=== PATIENT | female | born 1995 | race Caucasian/White ===

== ENCOUNTER 2017-01-22 09:45 | Emergency (ER) | payer OTHER, MEDICAID ==
[2017-01-22] MEDS ORDERED: ONDANSETRON 4MG/2ML VIAL (J2405) As Ordered ONE (10:09)
[2017-01-22] MEDS ORDERED: KETOROLAC 30 MG/ML VIAL (J1885) As Ordered ONE (10:09)
[2017-01-22 10:35] LABS: BASO % 0.6 % (0.0-1.0); EOS # 0.2 K/mm3 (0.0-0.50); EOS % 3.7 % (0.0-3.0); LARGE UNSTAINED CELL # 0.2 K/mm3 (0.0-0.4); LARGE UNSTAINED CELL % 2.7 % (0.0-4.0); LYMPH # 0.8 K/mm3 (1.5-6.5); LYMPH % 14.1 % (24.0-44.0); MEAN CORPUSCULAR HEMOGLOBIN 30.1 pg (27.0-33.0); MEAN CORPUSCULAR HGB CONC 33.2 g/dl (32.0-36.5); MEAN CORPUSCULAR VOLUME 90.7 fl (80.0-96.0); MONO # 0.3 K/mm3 (0.0-0.8); MONO % 5.8 % (0.0-5.0); NEUTROPHILS # 4.2 K/mm3 (1.8-7.7); NEUTROPHILS % 73.1 % (36.0-66.0); PLATELET COUNT, AUTOMATED 188 k/mm3 (150-450); RED CELL DISTRIBUTION WIDTH 12.4 % (11.5-14.5); WHITE BLOOD COUNT 5.8 K/mm3 (4.0-10.0)
[2017-01-22 10:53] LABS: ANION GAP 8 MEQ/L (8-16); BLOOD UREA NITROGEN 15 MG/DL (7-18); CALCIUM LEVEL 8.2 MG/DL (8.5-10.1); CARBON DIOXIDE LEVEL 27 MEQ/L (21-32); CHLORIDE LEVEL 109 MEQ/L (98-107); CREATININE FOR GFR 0.87 MG/DL (0.55-1.02); GLUCOSE, FASTING 106 MG/DL (70-105); SODIUM LEVEL 144 MEQ/L (136-145)
[2017-01-22] MEDS ORDERED: MORPHINE 4 MG/ML 1ML SYRINGE As Ordered ONE (11:23)
--- NOTE | 2017-01-22 11:56 | EDDOCDS ---
Physician Documentation [facility] Name: Deborah Cyr Age: 21 yrs Sex: Female : 1995 Arrival Date: 01/22/2017 Time: 09:45 Bed I2 / M2 Private MD: Disposition: 01/22/17 11:41 Discharged to Home/Self Care. Impression: Calculus of kidney and ureter - LEFT, WITH MILD OBSTRUCTIVE UROPATHY, Other abdominal pain - LEFT FLANK PAIN, Nausea with vomiting, unspecified. - Condition is Stable. - Discharge Instructions: Kidney Stones, Nausea and Vomiting. - Prescriptions for Naprosyn 500 mg Oral Tablet - take 1 tablet by ORAL route every 12 hours As needed take with food; 30 tablet. Flomax 0.4 mg Oral Capsule, Sust. Release 24 hr - take 1 capsule by ORAL route once daily for 10 days 1/2 hour following the same meal each day; 10 capsule. ZOFRAN ODT 4 mg Oral - dissolve 1 tablet by ORAL route 3-4 times daily As needed do not chew, do not swallow whole; 20 tablet. [place] 5- 325 mg Oral Tablet - take 1 tablet by ORAL route every 6 hours As needed MDD: 4 tabs; TAKE WITH FOOD.; 12 tablet. - Medication Reconciliation, Local Pharmacy Hours, Work Release Form - 2 day form. - Follow up: Emergency Department; When: As needed; Reason: Worsening of conditions. Follow up: Maria T Chavez MD; When: Call to arrange an appointment; Reason: Wound/Symptom Recheck, Further diagnostic work-up, Recheck today's complaints, Continuance of care, To establish care. - Problem is new. - Symptoms have improved. Historical: - Allergies: Codeine Sulfate (Vomit); tramadol (Upset stomach); - Home Meds: 1. Tylenol 500 mg X2 Oral (Last dose: 01/22/2017 07:30) - PMHx: Anemia; Hypoglycemia; meniscus damage to right knee; torn ACL in left knee; Kidney stones; - PSHx: none; - Social history: Smoking status: Patient uses tobacco products, light tobacco smoker. No barriers to communication noted, The patient speaks fluent Scottish. - Family history: No immediate family members are acutely ill. - : The pt / caregiver states he / she is not on anticoagulants. Home medication list is obtained from the patient, [facility] import data. - Exposure Risk Screening:: None identified. CHANNEL MAN: 01/22 09:55 LMP 01/16/2017 kcs Vital Signs: 09:47 BP 146 / 95; Pulse 69; Resp 20; Temp 96.0(T); Pulse Ox 100% ; Weight 63.5 kg / 139.99 lr2 lbs; Height 5 ft. 6 in. (167.64 cm); Pain 10/10; 11:50 BP 115 / 74; Pulse 75; Resp 20; Temp 96.6(O); Pulse Ox 98% on R/A; Pain 7/10; jml1 09:47 Body Mass Index 22.60 (63.50 kg, 167.64 cm) lr2 MDM: 10:06 UCG by Nursing ordered. dt4 10:06 IV Saline Lock ordered. dt4 10:06 NS 0.9% 500 ml IV at bolus once ordered. dt4 10:06 Ondansetron 4 mg IVP once ordered. dt4 10:06 ketorolac 30 mg IVP once ordered. dt4 10:07 Urinalysis Ordered. EDMS 10:07 CBC with Diff Ordered. EDMS 10:07 Basic Metabolic Profile Ordered. EDMS 10:07 CRP Ordered. EDMS 10:07 Urine Culture Ordered. EDMS 10:07 CT ABD & PELVIS: No Contrast Ordered. EDMS 10:37 Financial registration complete. mm15 10:45 [facility] Payment Agreement was scanned into [facility] and attached to record. mm15 11:28 morphine 4 mg IVP once ordered. dt4 Point of Care Testing: Urine : 10:20 hCG Reading: Negative; jml1 Ranges: Administered Medications: 10:24 Drug: NS 0.9% 500 ml [sodium chloride 0.9 % intravenous solution] Route: IV; Rate: hs1 bolus; Site: right antecubital; 11:55 Follow up: IV Status: Completed infusion; IV Intake: 500ml hs1 10:24 Drug: Ondansetron 4 mg [ondansetron HCl 2 mg/mL intravenous solution (2 mL)] Route: hs1 IVP; Site: right antecubital; 10:24 Drug: ketorolac 30 mg [ketorolac 30 mg/mL (1 mL) injection solution (1 mL)] Route: IVP; hs1 Site: right antecubital; 11:28 Drug: morphine 4 mg [morphine 4 mg/mL intravenous cartridge (1 mL)] Route: IVP; Site: hs1 right antecubital; 11:53 Follow up: Response: Confirmed pt not driving.; Pain is decreased hs1 Signatures: Dispatcher [employer] Noemi Hendricks RN RN kcs Minal Lomas RN RN hs1 Antoni Diaz mm15 Faustina Torres PA-C PA-C dt4 The chart was reviewed and I authenticate all verbal orders and agree with the evaluation and treatment provided.Attachments: 10:45 [facility] Payment Agreement mm15 MTDD
--- NOTE | 2017-01-22 11:56 | EDDOCDS ---
[facility] Name: Deborah Cyr Age: 21 yrs Sex: Female : 1995 Arrival Date: 01/22/2017 Time: 09:45 Bed I2 / M2 Private MD: Diagnosis: Calculus of kidney and ureter-LEFT, WITH MILD OBSTRUCTIVE UROPATHY;Other abdominal pain-LEFT FLANK PAIN;Nausea with vomiting, unspecified Presentation: 01/22 09:53 Presenting complaint: Patient states: since 0730 this am she has had left flank pain. kcs Mechanism of Injury: No Mechanism of Injury. Adult Sepsis Screening: The patient does not have new or worsening altered mentation. Patient's respiratory rate is less than 22. Systolic blood pressure is greater than 100. Patient has a qSOFA score of 0- Negative Sepsis Screen. Suicide/Homicide risk assessment- the patient denies having any suicidal and/or homicidal ideations and does not present with any other emotional, behavioral or mental health complaints. Status: The patient is a dependent. Transition of care: patient was not received from another setting of care. 09:53 Acuity: LINDA Level 3 kcs 09:53 Method Of Arrival: Ambulance kcs 11:54 Acute neurological deficits are not present. hs1 Triage Assessment: 09:55 General: Appears uncomfortable, well developed, well nourished, Behavior is agitated, kcs anxious, restless. Pain: Location: left flank Pain currently is 10 out of 10 on a pain scale. HIV screening NA for this visit Offered previously. Neurological: Level of Consciousness is awake, alert. Respiratory: Airway is patent Respiratory effort is even, unlabored, Respiratory pattern is regular, symmetrical. : Denies burning with urination, inability to void, hematuria. Derm: Skin is intact, is healthy with good turgor, Skin is dry, Skin is normal. 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 Tylenol 500 mg X2 Oral (Last dose: 01/22/2017 07:30) - PMHx: Anemia; Hypoglycemia; meniscus damage to right knee; torn ACL in left knee; Kidney stones; - PSHx: none; - Social history: Smoking status: Patient uses tobacco products, light tobacco smoker. No barriers to communication noted, The patient speaks fluent Gambian. - Family history: No immediate family members are acutely ill. - : The pt / caregiver states he / she is not on anticoagulants. Home medication list is obtained from the patient, [employer] import data. - Exposure Risk Screening:: None identified. Screenin:24 Screening information is obtained from the patient. Fall risk: No risks identified. hs1 Assistance ADL's: requires no assistance with activities of daily living. Abuse/DV Screen: The patient / caregiver reports he/she is: not in a situation that causes fear, pain or injury. Nutritional screening: No deficits noted. Advance Directives: There is no active DNR order. home support is adequate. Assessment: 10:24 General: Appears uncomfortable, Behavior is fussy. Pain: Location: back and abdomen. hs1 Neurological: No deficits noted. Respiratory: No deficits noted. Airway is patent Respiratory effort is even, unlabored, Respiratory pattern is regular, symmetrical. : Reports urgency urinary frequency. Musculoskeletal: Circulation, motion, and sensation intact Range of motion intact in all extremities. 11:00 General: Appears in no apparent distress, Patient at this time having CT study. hs1 11:12 General: returned from CT states in increased pain in left lower quadrant. Patient hs1 states pain 9/10 and radiates to back. . 11:53 General: Appears in no apparent distress, Behavior is cooperative. Pain: Location: hs1 abdomen and back Pain currently is 7 out of 10 on a pain scale. Respiratory: No deficits noted. GI: Denies nausea. Vital Signs: 09:47 BP 146 / 95; Pulse 69; Resp 20; Temp 96.0(T); Pulse Ox 100% ; Weight 63.5 kg; Height 5 lr2 ft. 6 in. (167.64 cm); Pain 10/10; 11:50 BP 115 / 74; Pulse 75; Resp 20; Temp 96.6(O); Pulse Ox 98% on R/A; Pain 7/10; jml1 09:47 Body Mass Index 22.60 (63.50 kg, 167.64 cm) lr2 Vitals: 09:47 Log In Time: January 22, 2017 at 09:45. lr2 ED Course: 09:46 Patient visited by Elayne Jackson. lr2 09:46 Patient moved to Waiting lr2 09:46 Patient moved to Pre RCE lr2 09:54 Triage Initiated kcs 09:57 [facility]ust[facility] Torres [facility] dt4 09:57 Giselle Pena MD is Attending Physician. dt4 09:57 Patient moved to Triage 3 kcs 09:58 Patient visited by Faustina Torres PA-C. dt4 10:06 Minal Lomas, RN is Primary Nurse. srm 10:06 Patient moved to I2 / M2 srm 10:20 Inserted saline lock: 20 gauge in right antecubital area and blood collected. The hs1 patient tolerated the procedure well. 10:21 Patient visited by Clifford Long. jml1 10:24 CRP Sent. hs1 10:24 Basic Metabolic Profile Sent. hs1 10:24 CBC with Diff Sent. hs1 10:24 Urine Culture Sent. hs1 10:24 Urinalysis Sent. hs1 10:45 [facility] Payment Agreement was scanned into [employer] and attached to record. mm15 10:52 Patient visited by Lianne Forrester RN. mk4 11:27 Patient visited by Minal Lomas, BILLY. hs1 11:40 Maria T Chavez MD is Referral Physician. dt4 11:51 Patient visited by Clifford Long. jml1 11:55 The patient / caregiver is instructed regarding the plan of care and ED course. hs1 11:55 Discontinued IV lock intact, bleeding controlled, pressure dressing applied, No hs1 redness/swelling at site. No procedures done that require assistance. Administered Medications: 10:24 Drug: NS 0.9% 500 ml [sodium chloride 0.9 % intravenous solution] Route: IV; Rate: hs1 bolus; Site: right antecubital; 11:55 Follow up: IV Status: Completed infusion; IV Intake: 500ml hs1 10:24 Drug: Ondansetron 4 mg [ondansetron HCl 2 mg/mL intravenous solution (2 mL)] Route: hs1 IVP; Site: right antecubital; 10:24 Drug: ketorolac 30 mg [ketorolac 30 mg/mL (1 mL) injection solution (1 mL)] Route: IVP; hs1 Site: right antecubital; 11:28 Drug: morphine 4 mg [morphine 4 mg/mL intravenous cartridge (1 mL)] Route: IVP; Site: hs1 right antecubital; 11:53 Follow up: Response: Confirmed pt not driving.; Pain is decreased hs1 Point of Care Testing: Urine : 10:20 hCG Reading: Negative; jml1 Ranges: Intake: 11:55 IV: 500.00ml; Total: 500.00ml. hs1 Order Results: Lab Order: Urinalysis; SPEC'M 01/22/17 10:14 Test: APPEARANCE, URINE; Value: HAZY; Range: CLEAR; Status: F Test: COLOR, URINE; Value: YELLOW; Range: YELLOW; Status: F Test: PH,URINE; Value: 5.0; Range: 5.0-9.0; Units: UNITS; Status: F Test: SPECIFIC GRAVITY URINE AUTO; Value: 1.025; Range: 1.002-1.035; Status: F Test: PROTEIN, URINE AUTO; Value: 1+; Range: NEGATIVE; Abnormal: Above high normal; Units: mg/dL; Status: F Test: GLUCOSE, URINE (UA) AUTO; Value: NEGATIVE; Range: NEGATIVE; Units: mg/dL; Status: F Test: KETONE, URINE AUTO; Value: TRACE; Range: NEGATIVE; Abnormal: Above high normal; Units: mg/dL; Status: F Test: UROBILINOGEN, URINE AUTO; Value: 0.2; Range: 0.0-2.0; Units: mg/dL; Status: F Test: BILIRUBIN, URINE AUTO; Value: NEGATIVE; Range: NEGATIVE; Status: F Test: NITRITE, URINE AUTO; Value: NEGATIVE; Range: NEGATIVE; Status: F Test: LEUKOCYTE ESTERASE, URINE AUTO; Value: NEGATIVE; Range: NEGATIVE; Status: F Test: BLOOD, URINE BLOOD; Value: 3+; Range: NEGATIVE; Abnormal: Above high normal; Status: F Test: WBC, URINE AUTO; Value: 1; Range: 0-3; Units: /HPF; Status: F Test: RBC, URINE AUTO; Value: TNTC; Range: 0-3; Abnormal: Above high normal; Units: /HPF; Status: F Test: BACTERIA, URINE AUTO; Value: NEGATIVE; Range: NEGATIVE; Status: F Test: SQUAMOUS EPITHELIAL CELL UR AU; Value: 1; Range: 0-6; Units: /HPF; Status: F Test: MUCUS, URINE; Value: SMALL; Range: NEGATIVE; Status: F Test: HYALINE CAST, URINE AUTO; Value: 0; Range: 0-1; Units: /LPF; Status: F Lab Order: CBC with Diff; SPEC'M 01/22/17 10:14 Test: WHITE BLOOD COUNT; Value: 5.8; Range: 4.0-10.0; Units: K/mm3; Status: F Test: RED BLOOD COUNT; Value: 4.33; Range: 4.00-5.40; Units: M/mm3; Status: F Test: HEMOGLOBIN; Value: 13.0; Range: 12.0-16.0; Units: g/dl; Status: F Test: HEMATOCRIT; Value: 39.3; Range: 36.0-47.0; Units: %; Status: F Test: MEAN CORPUSCULAR VOLUME; Value: 90.7; Range: 80.0-96.0; Units: fl; Status: F Test: MEAN CORPUSCULAR HEMOGLOBIN; Value: 30.1; Range: 27.0-33.0; Units: pg; Status: F Test: MEAN CORPUSCULAR HGB CONC; Value: 33.2; Range: 32.0-36.5; Units: g/dl; Status: F Test: RED CELL DISTRIBUTION WIDTH; Value: 12.4; Range: 11.5-14.5; Units: %; Status: F Test: PLATELET COUNT, AUTOMATED; Value: 188; Range: 150-450; Units: k/mm3; Status: F Test: NEUTROPHILS %; Value: 73.1; Range: 36.0-66.0; Abnormal: Above high normal; Units: %; Status: F Test: LYMPH %; Value: 14.1; Range: 24.0-44.0; Abnormal: Below low normal; Units: %; Status: F Test: MONO %; Value: 5.8; Range: 0.0-5.0; Abnormal: Above high normal; Units: %; Status: F Test: EOS %; Value: 3.7; Range: 0.0-3.0; Abnormal: Above high normal; Units: %; Status: F Test: BASO %; Value: 0.6; Range: 0.0-1.0; Units: %; Status: F Test: LARGE UNSTAINED CELL %; Value: 2.7; Range: 0.0-4.0; Units: %; Status: F Test: NEUTROPHILS #; Value: 4.2; Range: 1.8-7.7; Units: K/mm3; Status: F Test: LYMPH #; Value: 0.8; Range: 1.5-6.5; Abnormal: Below low normal; Units: K/mm3; Status: F Test: MONO #; Value: 0.3; Range: 0.0-0.8; Units: K/mm3; Status: F Test: EOS #; Value: 0.2; Range: 0.0-0.50; Units: K/mm3; Status: F Test: BASO #; Value: 0.0; Range: 0.0-0.2; Units: K/mm3; Status: F Test: LARGE UNSTAINED CELL #; Value: 0.2; Range: 0.0-0.4; Units: K/mm3; Status: F Lab Order: Basic Metabolic Profile; SPEC'M 01/22/17 10:14 Test: GLUCOSE, FASTING; Value: 106; Range: 70-105; Abnormal: Above high normal; Units: MG/DL; Status: F Test: BLOOD UREA NITROGEN; Value: 15; Range: 7-18; Units: MG/DL; Status: F Test: CREATININE FOR GFR; Value: 0.87; Range: 0.55-1.02; Units: MG/DL; Status: F Test: SODIUM LEVEL; Value: 144; Range: 136-145; Units: MEQ/L; Status: F Test: POTASSIUM SERUM; Value: 4.0; Range: 3.5-5.1; Units: MEQ/L; Status: F Test: CHLORIDE LEVEL; Value: 109; Range: 98-107; Abnormal: Above high normal; Units: MEQ/L; Status: F Test: CARBON DIOXIDE LEVEL; Value: 27; Range: 21-32; Units: MEQ/L; Status: F Test: ANION GAP; Value: 8; Range: 8-16; Units: MEQ/L; Status: F Test: CALCIUM LEVEL; Value: 8.2; Range: 8.5-10.1; Abnormal: Below low normal; Units: MG/DL; Status: F Lab Order: CRP; SPEC'M 01/22/17 10:14 Test: C REACTIVE PROTEIN QUANTITATIV; Value: < 0.30; Range: 0.00-0.30; Units: MG/DL; Status: F Outcome: 11:41 Discharge ordered by Provider. dt4 11:54 Discharge Assessment: Patient awake, alert and oriented x 3. No cognitive and/or hs1 functional deficits noted. Patient verbalized understanding of disposition instructions. patient administered narcotics - yes. Pt provided with safe discharge. The following High Risk Discharge criteria are identified: None. Discharged to home ambulatory, with friend. Condition: stable. Discharge instructions given to patient, Instructed on discharge instructions, follow up and referral plans. medication usage, Demonstrated understanding of instructions, medications, Pt was receptive of discharge instructions/ teaching. Prescriptions given X 4, Work note provided to patient. CT Study completed. Property sent home with patient. 11:55 Patient left the ED. hs1 Signatures: Noemi Dyer, RN RN [facility] Rosanne Self RN RN [facility] Minal Lomas RN RN hs1 Clifford Long jml1 Antoni Diaz mm15 Lianne Forrester RN RN mk4 Faustina Torres, SERENE PARobi dt4 Elayne Jackson lr2 ILANA
--- NOTE | 2017-01-22 14:28 | REP ---
Clinical: Left flank pain. Comparison: 07/01/2016. Findings: Mild left-sided obstructive uropathy with mild hydroureteronephrosis and minimal periureteral stranding secondary to a 2 mm calculus at the ureterovesicle junction (image 122). 3 mm nonobstructing left renal calculus is also appreciated while the right kidney and ureter appear normal. The bladder is unremarkable. Liver, spleen, pancreas, gallbladder, and bilateral adrenal glands are normal. The enteric system is without obstruction or acute inflammatory process. Pelvis demonstrates normal bladder and age-appropriate uterus/adnexa. Trace pelvic fluid likely physiologic. No free air. No obvious adenopathy. Abdominal aorta without aneurysm. Surrounding musculoskeletal structures intact. Lung bases clear. Impression: Mild left-sided obstructive uropathy with a 2 mm calculus at the ureterovesicle junction. 3 mm nonobstructing left renal calculus. Normal right kidney/ureter and bladder. Signed by Tima Lindquist MD 01/22/2017 11:18 A
--- NOTE | 2017-01-24 12:56 | EDDOCDS ---
Nurse's Notes [facility] Name: Deborah Cyr Age: 21 yrs Sex: Female : 1995 Arrival Date: 01/22/2017 Time: 09:45 Bed I2 / M2 Private MD: Diagnosis: Calculus of kidney and ureter-LEFT, WITH MILD OBSTRUCTIVE UROPATHY;Other abdominal pain-LEFT FLANK PAIN;Nausea with vomiting, unspecified Presentation: 01/22 09:53 Presenting complaint: Patient states: since 0730 this am she has had left flank pain. kcs Mechanism of Injury: No Mechanism of Injury. Adult Sepsis Screening: The patient does not have new or worsening altered mentation. Patient's respiratory rate is less than 22. Systolic blood pressure is greater than 100. Patient has a qSOFA score of 0- Negative Sepsis Screen. Suicide/Homicide risk assessment- the patient denies having any suicidal and/or homicidal ideations and does not present with any other emotional, behavioral or mental health complaints. Status: The patient is a dependent. Transition of care: patient was not received from another setting of care. 09:53 Acuity: LINDA Level 3 kcs 09:53 Method Of Arrival: Ambulance kcs 11:54 Acute neurological deficits are not present. hs1 Triage Assessment: 09:55 General: Appears uncomfortable, well developed, well nourished, Behavior is agitated, kcs anxious, restless. Pain: Location: left flank Pain currently is 10 out of 10 on a pain scale. HIV screening NA for this visit Offered previously. Neurological: Level of Consciousness is awake, alert. Respiratory: Airway is patent Respiratory effort is even, unlabored, Respiratory pattern is regular, symmetrical. : Denies burning with urination, inability to void, hematuria. Derm: Skin is intact, is healthy with good turgor, Skin is dry, Skin is normal. 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 Tylenol 500 mg X2 Oral (Last dose: 01/22/2017 07:30) - PMHx: Anemia; Hypoglycemia; meniscus damage to right knee; torn ACL in left knee; Kidney stones; - PSHx: none; - Social history: Smoking status: Patient uses tobacco products, light tobacco smoker. No barriers to communication noted, The patient speaks fluent [place]. - Family history: No immediate family members are acutely ill. - : The pt / caregiver states he / she is not on anticoagulants. Home medication list is obtained from the patient, [employer] import data. - Exposure Risk Screening:: None identified. Screenin:24 Screening information is obtained from the patient. Fall risk: No risks identified. hs1 Assistance ADL's: requires no assistance with activities of daily living. Abuse/DV Screen: The patient / caregiver reports he/she is: not in a situation that causes fear, pain or injury. Nutritional screening: No deficits noted. Advance Directives: There is no active DNR order. home support is adequate. Assessment: 10:24 General: Appears uncomfortable, Behavior is fussy. Pain: Location: back and abdomen. hs1 Neurological: No deficits noted. Respiratory: No deficits noted. Airway is patent Respiratory effort is even, unlabored, Respiratory pattern is regular, symmetrical. : Reports urgency urinary frequency. Musculoskeletal: Circulation, motion, and sensation intact Range of motion intact in all extremities. 11:00 General: Appears in no apparent distress, Patient at this time having CT study. hs1 11:12 General: returned from CT states in increased pain in left lower quadrant. Patient hs1 states pain 9/10 and radiates to back. . 11:53 General: Appears in no apparent distress, Behavior is cooperative. Pain: Location: hs1 abdomen and back Pain currently is 7 out of 10 on a pain scale. Respiratory: No deficits noted. GI: Denies nausea. Vital Signs: 09:47 BP 146 / 95; Pulse 69; Resp 20; Temp 96.0(T); Pulse Ox 100% ; Weight 63.5 kg; Height 5 lr2 ft. 6 in. (167.64 cm); Pain 10/10; 11:50 BP 115 / 74; Pulse 75; Resp 20; Temp 96.6(O); Pulse Ox 98% on R/A; Pain 7/10; jml1 09:47 Body Mass Index 22.60 (63.50 kg, 167.64 cm) lr2 Vitals: 09:47 Log In Time: January 22, 2017 at 09:45. lr2 ED Course: 09:46 Patient visited by Elayne Jackson. lr2 09:46 Patient moved to Waiting lr2 09:46 Patient moved to Pre RCE lr2 09:54 Triage Initiated kcs 09:57 [facility]ust[facility] Torres [facility]. dt4 09:57 Giselle Pena MD is Attending Physician. dt4 09:57 Patient moved to Triage 3 kcs 09:58 Patient visited by Faustina Torres PA-C. dt4 10:06 Minal Lomas, RN is Primary Nurse. srm 10:06 Patient moved to I2 / M2 srm 10:20 Inserted saline lock: 20 gauge in right antecubital area and blood collected. The hs1 patient tolerated the procedure well. 10:21 Patient visited by Clifford Long. jml1 10:24 CRP Sent. hs1 10:24 Basic Metabolic Profile Sent. hs1 10:24 CBC with Diff Sent. hs1 10:24 Urine Culture Sent. hs1 10:24 Urinalysis Sent. hs1 10:45 [facility] Payment Agreement was scanned into [employer] and attached to record. mm15 10:52 Patient visited by Lianne Forrester RN. mk4 11:27 Patient visited by Minal Lomas, BILLY. hs1 11:40 Maria T Chavez MD is Referral Physician. dt4 11:51 Patient visited by Clifford Long. jml1 11:55 The patient / caregiver is instructed regarding the plan of care and ED course. hs1 11:55 Discontinued IV lock intact, bleeding controlled, pressure dressing applied, No hs1 redness/swelling at site. No procedures done that require assistance. 13:33 T-Sheet-- Draft Copy was scanned into [employer] and attached to record. gb 13:33 Radiology Report was scanned into [employer] and attached to record. gb 14:48 CT ABD & PELVIS: No Contrast Returned. EDMS Administered Medications: 10:24 Drug: NS 0.9% 500 ml [sodium chloride 0.9 % intravenous solution] Route: IV; Rate: hs1 bolus; Site: right antecubital; 11:55 Follow up: IV Status: Completed infusion; IV Intake: 500ml hs1 10:24 Drug: Ondansetron 4 mg [ondansetron HCl 2 mg/mL intravenous solution (2 mL)] Route: hs1 IVP; Site: right antecubital; 10:24 Drug: ketorolac 30 mg [ketorolac 30 mg/mL (1 mL) injection solution (1 mL)] Route: IVP; hs1 Site: right antecubital; 11:28 Drug: morphine 4 mg [morphine 4 mg/mL intravenous cartridge (1 mL)] Route: IVP; Site: hs1 right antecubital; 11:53 Follow up: Response: Confirmed pt not driving.; Pain is decreased hs1 Point of Care Testing: Urine : 10:20 hCG Reading: Negative; jml1 Ranges: Intake: 11:55 IV: 500.00ml; Total: 500.00ml. hs1 Order Results: Lab Order: Urinalysis; SPEC'M 01/22/17 10:14 Test: APPEARANCE, URINE; Value: HAZY; Range: CLEAR; Status: F Test: COLOR, URINE; Value: YELLOW; Range: YELLOW; Status: F Test: PH,URINE; Value: 5.0; Range: 5.0-9.0; Units: UNITS; Status: F Test: SPECIFIC GRAVITY URINE AUTO; Value: 1.025; Range: 1.002-1.035; Status: F Test: PROTEIN, URINE AUTO; Value: 1+; Range: NEGATIVE; Abnormal: Above high normal; Units: mg/dL; Status: F Test: GLUCOSE, URINE (UA) AUTO; Value: NEGATIVE; Range: NEGATIVE; Units: mg/dL; Status: F Test: KETONE, URINE AUTO; Value: TRACE; Range: NEGATIVE; Abnormal: Above high normal; Units: mg/dL; Status: F Test: UROBILINOGEN, URINE AUTO; Value: 0.2; Range: 0.0-2.0; Units: mg/dL; Status: F Test: BILIRUBIN, URINE AUTO; Value: NEGATIVE; Range: NEGATIVE; Status: F Test: NITRITE, URINE AUTO; Value: NEGATIVE; Range: NEGATIVE; Status: F Test: LEUKOCYTE ESTERASE, URINE AUTO; Value: NEGATIVE; Range: NEGATIVE; Status: F Test: BLOOD, URINE BLOOD; Value: 3+; Range: NEGATIVE; Abnormal: Above high normal; Status: F Test: WBC, URINE AUTO; Value: 1; Range: 0-3; Units: /HPF; Status: F Test: RBC, URINE AUTO; Value: TNTC; Range: 0-3; Abnormal: Above high normal; Units: /HPF; Status: F Test: BACTERIA, URINE AUTO; Value: NEGATIVE; Range: NEGATIVE; Status: F Test: SQUAMOUS EPITHELIAL CELL UR AU; Value: 1; Range: 0-6; Units: /HPF; Status: F Test: MUCUS, URINE; Value: SMALL; Range: NEGATIVE; Status: F Test: HYALINE CAST, URINE AUTO; Value: 0; Range: 0-1; Units: /LPF; Status: F Lab Order: Urine Culture; SPEC'M 01/22/17 10:14 Test: URINE CULTURE; Value: <EXTERNAL COMMENT eCWMed> FULL REPORT IN LAB NOTES (eCW and Medent).; Status: F Test: URINE CULTURE; Value: URINE CULTURE RESULT SPECIMEN APPEARS CONTAMINATED; Status: F Lab Order: CBC with Diff; SPEC'M 01/22/17 10:14 Test: WHITE BLOOD COUNT; Value: 5.8; Range: 4.0-10.0; Units: K/mm3; Status: F Test: RED BLOOD COUNT; Value: 4.33; Range: 4.00-5.40; Units: M/mm3; Status: F Test: HEMOGLOBIN; Value: 13.0; Range: 12.0-16.0; Units: g/dl; Status: F Test: HEMATOCRIT; Value: 39.3; Range: 36.0-47.0; Units: %; Status: F Test: MEAN CORPUSCULAR VOLUME; Value: 90.7; Range: 80.0-96.0; Units: fl; Status: F Test: MEAN CORPUSCULAR HEMOGLOBIN; Value: 30.1; Range: 27.0-33.0; Units: pg; Status: F Test: MEAN CORPUSCULAR HGB CONC; Value: 33.2; Range: 32.0-36.5; Units: g/dl; Status: F Test: RED CELL DISTRIBUTION WIDTH; Value: 12.4; Range: 11.5-14.5; Units: %; Status: F Test: PLATELET COUNT, AUTOMATED; Value: 188; Range: 150-450; Units: k/mm3; Status: F Test: NEUTROPHILS %; Value: 73.1; Range: 36.0-66.0; Abnormal: Above high normal; Units: %; Status: F Test: LYMPH %; Value: 14.1; Range: 24.0-44.0; Abnormal: Below low normal; Units: %; Status: F Test: MONO %; Value: 5.8; Range: 0.0-5.0; Abnormal: Above high normal; Units: %; Status: F Test: EOS %; Value: 3.7; Range: 0.0-3.0; Abnormal: Above high normal; Units: %; Status: F Test: BASO %; Value: 0.6; Range: 0.0-1.0; Units: %; Status: F Test: LARGE UNSTAINED CELL %; Value: 2.7; Range: 0.0-4.0; Units: %; Status: F Test: NEUTROPHILS #; Value: 4.2; Range: 1.8-7.7; Units: K/mm3; Status: F Test: LYMPH #; Value: 0.8; Range: 1.5-6.5; Abnormal: Below low normal; Units: K/mm3; Status: F Test: MONO #; Value: 0.3; Range: 0.0-0.8; Units: K/mm3; Status: F Test: EOS #; Value: 0.2; Range: 0.0-0.50; Units: K/mm3; Status: F Test: BASO #; Value: 0.0; Range: 0.0-0.2; Units: K/mm3; Status: F Test: LARGE UNSTAINED CELL #; Value: 0.2; Range: 0.0-0.4; Units: K/mm3; Status: F Lab Order: Basic Metabolic Profile; [facility]' 01/22/17 10:14 Test: GLUCOSE, FASTING; Value: 106; Range: 70-105; Abnormal: Above high normal; Units: MG/DL; Status: F Test: BLOOD UREA NITROGEN; Value: 15; Range: 7-18; Units: MG/DL; Status: F Test: CREATININE FOR GFR; Value: 0.87; Range: 0.55-1.02; Units: MG/DL; Status: F Test: SODIUM LEVEL; Value: 144; Range: 136-145; Units: MEQ/L; Status: F Test: POTASSIUM SERUM; Value: 4.0; Range: 3.5-5.1; Units: MEQ/L; Status: F Test: CHLORIDE LEVEL; Value: 109; Range: 98-107; Abnormal: Above high normal; Units: MEQ/L; Status: F Test: CARBON DIOXIDE LEVEL; Value: 27; Range: 21-32; Units: MEQ/L; Status: F Test: ANION GAP; Value: 8; Range: 8-16; Units: MEQ/L; Status: F Test: CALCIUM LEVEL; Value: 8.2; Range: 8.5-10.1; Abnormal: Below low normal; Units: MG/DL; Status: F Lab Order: CRP; SPEC'M 01/22/17 10:14 Test: C REACTIVE PROTEIN QUANTITATIV; Value: < 0.30; Range: 0.00-0.30; Units: MG/DL; Status: F Radiology Order: CT ABD & PELVIS: No Contrast Test: CT ABD & PELVIS: No Contrast REASON FOR EXAMINATION: LEFT FLANK PAIN, HX OF STONE; Clinical: Left flank pain.; ; Comparison: 07/01/2016.; ; Findings:; Mild left-sided obstructive uropathy with mild hydroureteronephrosis and minimal; periureteral stranding secondary to a 2 mm calculus at the ureterovesicle; junction (image 122). 3 mm nonobstructing left renal calculus is also; appreciated while the right kidney and ureter appear normal. The bladder is; unremarkable.; ; Liver, spleen, pancreas, gallbladder, and bilateral adrenal glands are normal.; The enteric system is without obstruction or acute inflammatory process. Pelvis; demonstrates normal bladder and age-appropriate uterus/adnexa. Trace pelvic; fluid likely physiologic. No free air. No obvious adenopathy. Abdominal aorta; without aneurysm. Surrounding musculoskeletal structures intact. Lung bases; clear.; ; Impression:; Mild left-sided obstructive uropathy with a 2 mm calculus at the ureterovesicle; junction. 3 mm nonobstructing left renal calculus. Normal right kidney/ureter; and bladder.; ; ; ; ; Signed by; Tima Lindquist MD 01/22/2017 11:18 A; Outcome: 11:41 Discharge ordered by Provider. dt4 11:54 Discharge Assessment: Patient awake, alert and oriented x 3. No cognitive and/or hs1 functional deficits noted. Patient verbalized understanding of disposition instructions. patient administered narcotics - yes. Pt provided with safe discharge. The following High Risk Discharge criteria are identified: None. Discharged to home ambulatory, with friend. Condition: stable. Discharge instructions given to patient, Instructed on discharge instructions, follow up and referral plans. medication usage, Demonstrated understanding of instructions, medications, Pt was receptive of discharge instructions/ teaching. Prescriptions given X 4, Work note provided to patient. CT Study completed. Property sent home with patient. 11:55 Patient left the ED. hs1 Signatures: Dispatcher [employer] EDNoemi Field, RN RN [facility] Rosanne Self RN RN [facility] Che Franklin, Reg Reg Minal Lomas RN RN hs1 Clifford Long jml1 Antoni Diaz mm15 Lianne Forrester RN RN mk4 Faustina Torres PA-C PA-C dt4 Elayne Jackson lr2 Chart Complete ILANA
--- NOTE | 2017-01-24 12:56 | EDDOCDS ---
Physician Documentation [facility] Name: Deborah Cyr Age: 21 yrs Sex: Female : 1995 Arrival Date: 01/22/2017 Time: 09:45 Bed I2 / M2 Private MD: Disposition: 01/22/17 11:41 Discharged to Home/Self Care. Impression: Calculus of kidney and ureter - LEFT, WITH MILD OBSTRUCTIVE UROPATHY, Other abdominal pain - LEFT FLANK PAIN, Nausea with vomiting, unspecified. - Condition is Stable. - Discharge Instructions: Kidney Stones, Nausea and Vomiting. - Prescriptions for Naprosyn 500 mg Oral Tablet - take 1 tablet by ORAL route every 12 hours As needed take with food; 30 tablet. Flomax 0.4 mg Oral Capsule, Sust. Release 24 hr - take 1 capsule by ORAL route once daily for 10 days 1/2 hour following the same meal each day; 10 capsule. ZOFRAN ODT 4 mg Oral - dissolve 1 tablet by ORAL route 3-4 times daily As needed do not chew, do not swallow whole; 20 tablet. [place] 5- 325 mg Oral Tablet - take 1 tablet by ORAL route every 6 hours As needed MDD: 4 tabs; TAKE WITH FOOD.; 12 tablet. - Medication Reconciliation, Local Pharmacy Hours, Work Release Form - 2 day form. - Follow up: Emergency Department; When: As needed; Reason: Worsening of conditions. Follow up: Maria T Chavez MD; When: Call to arrange an appointment; Reason: Wound/Symptom Recheck, Further diagnostic work-up, Recheck today's complaints, Continuance of care, To establish care. - Problem is new. - Symptoms have improved. Historical: - Allergies: Codeine Sulfate (Vomit); tramadol (Upset stomach); - Home Meds: 1. Tylenol 500 mg X2 Oral (Last dose: 01/22/2017 07:30) - PMHx: Anemia; Hypoglycemia; meniscus damage to right knee; torn ACL in left knee; Kidney stones; - PSHx: none; - Social history: Smoking status: Patient uses tobacco products, light tobacco smoker. No barriers to communication noted, The patient speaks fluent French. - Family history: No immediate family members are acutely ill. - : The pt / caregiver states he / she is not on anticoagulants. Home medication list is obtained from the patient, [employer] import data. - Exposure Risk Screening:: None identified. 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 6 in. (167.64 cm); Pain 10/10; 11:50 BP 115 / 74; Pulse 75; Resp 20; Temp 96.6(O); Pulse Ox 98% on R/A; Pain 7/10; jml1 09:47 Body Mass Index 22.60 (63.50 kg, 167.64 cm) lr2 MDM: 10:06 UCG by Nursing ordered. dt4 10:06 IV Saline Lock ordered. dt4 10:06 NS 0.9% 500 ml IV at bolus once ordered. dt4 10:06 Ondansetron 4 mg IVP once ordered. dt4 10:06 ketorolac 30 mg IVP once ordered. dt4 10:07 Urinalysis Ordered. EDMS 10:07 CBC with Diff Ordered. EDMS 10:07 Basic Metabolic Profile Ordered. EDMS 10:07 CRP Ordered. EDMS 10:07 Urine Culture Ordered. EDMS 10:07 CT ABD & PELVIS: No Contrast Ordered. EDMS 10:37 Financial registration complete. mm15 10:45 [facility] Payment Agreement was scanned into [employer] and attached to record. mm15 11:28 morphine 4 mg IVP once ordered. dt4 13:33 T-Sheet-- Draft Copy was scanned into [employer] and attached to record. gb 13:33 Radiology Report was scanned into [employer] and attached to record. gb Point of Care Testing: Urine : 10:20 hCG Reading: Negative; jml1 Ranges: Administered Medications: 10:24 Drug: NS 0.9% 500 ml [sodium chloride 0.9 % intravenous solution] Route: IV; Rate: hs1 bolus; Site: right antecubital; 11:55 Follow up: IV Status: Completed infusion; IV Intake: 500ml hs1 10:24 Drug: Ondansetron 4 mg [ondansetron HCl 2 mg/mL intravenous solution (2 mL)] Route: hs1 IVP; Site: right antecubital; 10:24 Drug: ketorolac 30 mg [ketorolac 30 mg/mL (1 mL) injection solution (1 mL)] Route: IVP; hs1 Site: right antecubital; 11:28 Drug: morphine 4 mg [morphine 4 mg/mL intravenous cartridge (1 mL)] Route: IVP; Site: hs1 right antecubital; 11:53 Follow up: Response: Confirmed pt not driving.; Pain is decreased hs1 Signatures: Dispatcher [employer] EDNoemi Field RN RN [facility] Che Franklin, Reg Reg Minal Lomas RN RN hs1 Antoni Diaz mm15 Faustina Torres PA-C PA-C dt4 The chart was reviewed and I authenticate all verbal orders and agree with the evaluation and treatment provided.Attachments: 10:45 [facility] Payment Agreement mm15 13:33 T-Sheet-- Draft Copy Chart Complete MTDD
--- NOTE | 2017-01-24 12:56 | EDDOCDS ---
Physician Documentation [facility] Name: Deborah Cyr Age: 21 yrs Sex: Female : 1995 Arrival Date: 01/22/2017 Time: 09:45 Bed I2 / M2 Private MD: Disposition: 01/22/17 11:41 Discharged to Home/Self Care. Impression: Calculus of kidney and ureter - LEFT, WITH MILD OBSTRUCTIVE UROPATHY, Other abdominal pain - LEFT FLANK PAIN, Nausea with vomiting, unspecified. - Condition is Stable. - Discharge Instructions: Kidney Stones, Nausea and Vomiting. - Prescriptions for Naprosyn 500 mg Oral Tablet - take 1 tablet by ORAL route every 12 hours As needed take with food; 30 tablet. Flomax 0.4 mg Oral Capsule, Sust. Release 24 hr - take 1 capsule by ORAL route once daily for 10 days 1/2 hour following the same meal each day; 10 capsule. ZOFRAN ODT 4 mg Oral - dissolve 1 tablet by ORAL route 3-4 times daily As needed do not chew, do not swallow whole; 20 tablet. [place] 5- 325 mg Oral Tablet - take 1 tablet by ORAL route every 6 hours As needed MDD: 4 tabs; TAKE WITH FOOD.; 12 tablet. - Medication Reconciliation, Local Pharmacy Hours, Work Release Form - 2 day form. - Follow up: Emergency Department; When: As needed; Reason: Worsening of conditions. Follow up: Maria T Chavez MD; When: Call to arrange an appointment; Reason: Wound/Symptom Recheck, Further diagnostic work-up, Recheck today's complaints, Continuance of care, To establish care. - Problem is new. - Symptoms have improved. Historical: - Allergies: Codeine Sulfate (Vomit); tramadol (Upset stomach); - Home Meds: 1. Tylenol 500 mg X2 Oral (Last dose: 01/22/2017 07:30) - PMHx: Anemia; Hypoglycemia; meniscus damage to right knee; torn ACL in left knee; Kidney stones; - PSHx: none; - Social history: Smoking status: Patient uses tobacco products, light tobacco smoker. No barriers to communication noted, The patient speaks fluent Finnish. - Family history: No immediate family members are acutely ill. - : The pt / caregiver states he / she is not on anticoagulants. Home medication list is obtained from the patient, [employer] import data. - Exposure Risk Screening:: None identified. 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 6 in. (167.64 cm); Pain 10/10; 11:50 BP 115 / 74; Pulse 75; Resp 20; Temp 96.6(O); Pulse Ox 98% on R/A; Pain 7/10; jml1 09:47 Body Mass Index 22.60 (63.50 kg, 167.64 cm) lr2 MDM: 10:06 UCG by Nursing ordered. dt4 10:06 IV Saline Lock ordered. dt4 10:06 NS 0.9% 500 ml IV at bolus once ordered. dt4 10:06 Ondansetron 4 mg IVP once ordered. dt4 10:06 ketorolac 30 mg IVP once ordered. dt4 10:07 Urinalysis Ordered. EDMS 10:07 CBC with Diff Ordered. EDMS 10:07 Basic Metabolic Profile Ordered. EDMS 10:07 CRP Ordered. EDMS 10:07 Urine Culture Ordered. EDMS 10:07 CT ABD & PELVIS: No Contrast Ordered. EDMS 10:37 Financial registration complete. mm15 10:45 [facility] Payment Agreement was scanned into [employer] and attached to record. mm15 11:28 morphine 4 mg IVP once ordered. dt4 13:33 T-Sheet-- Draft Copy was scanned into [employer] and attached to record. gb 13:33 Radiology Report was scanned into [employer] and attached to record. gb Point of Care Testing: Urine : 10:20 hCG Reading: Negative; jml1 Ranges: Administered Medications: 10:24 Drug: NS 0.9% 500 ml [sodium chloride 0.9 % intravenous solution] Route: IV; Rate: hs1 bolus; Site: right antecubital; 11:55 Follow up: IV Status: Completed infusion; IV Intake: 500ml hs1 10:24 Drug: Ondansetron 4 mg [ondansetron HCl 2 mg/mL intravenous solution (2 mL)] Route: hs1 IVP; Site: right antecubital; 10:24 Drug: ketorolac 30 mg [ketorolac 30 mg/mL (1 mL) injection solution (1 mL)] Route: IVP; hs1 Site: right antecubital; 11:28 Drug: morphine 4 mg [morphine 4 mg/mL intravenous cartridge (1 mL)] Route: IVP; Site: hs1 right antecubital; 11:53 Follow up: Response: Confirmed pt not driving.; Pain is decreased hs1 Signatures: Dispatcher [employer] EDNoemi Field RN RN [facility] Che Franklin, Reg Reg Minal Lomas RN RN hs1 Antoni Diaz mm15 Faustina Torres PA-C PA-C dt4 The chart was reviewed and I authenticate all verbal orders and agree with the evaluation and treatment provided.Attachments: 10:45 [facility] Payment Agreement mm15 13:33 T-Sheet-- Draft Copy Chart Complete MTDD
== END 2017-01-22 11:55 | disposition home or self-care (01) ==
LOC: M ED 09:45
DX: N20.2 Calculus of kidney with calculus of ureter (principal); N13.9 Obstructive and reflux uropathy, unspecified; R11.2 Nausea with vomiting, unspecified; F17.200 Nicotine dependence, unspecified, uncomplicated; Z87.442 Personal history of urinary calculi; Z88.5 Allergy status to narcotic agent
CPT/HCPCS: 36415; 74176; 80048; 81001; 81025; 85025; 86140; 87086; 96361; 96374; 96375; 99284; J1885; J2405

== ENCOUNTER → 2017-02-22 | Emergency (ER) | payer OTHER, MEDICAID ==
[~2017-02-22] VITALS: Ht 170.2 cm; Wt 61.2 kg
[~2017-02-22] MED LIST: POTASSIUM CHLORIDE 10 MEQ SR TABLET PO ONE
[2017-02-22 16:25] VITALS: BP 135/73
[2017-02-22 16:56] LABS: MEAN CORPUSCULAR HEMOGLOBIN 30.6 pg (27.0-33.0); MEAN CORPUSCULAR HGB CONC 34.2 g/dl (32.0-36.5); MEAN CORPUSCULAR VOLUME 89.6 fl (80.0-96.0); RED CELL DISTRIBUTION WIDTH 12.4 % (11.5-14.5); WHITE BLOOD COUNT 5.9 K/mm3 (4.0-10.0)
[2017-02-22 17:05] LABS: CONTROL LINE HCG INT CTR LINE PRESENT
[2017-02-22 17:09] LABS: METHADONE URINE NEGATIVE (NEGATIVE)
[2017-02-22 17:20] LABS: ALBUMIN 4.8 GM/DL (3.2-5.2); ALKALINE PHOSPHATASE 55 U/L (45-117); ALT/SGPT 26 U/L (12-78); ANION GAP 10 MEQ/L (8-16); AST/SGOT 27 U/L (15-37); BILIRUBIN,DIRECT 0.4 MG/DL (0.0-0.2); BILIRUBIN,TOTAL 1.2 MG/DL (0.2-1.0); BLOOD UREA NITROGEN 23 MG/DL (7-18); CALCIUM LEVEL 9.1 MG/DL (8.5-10.1); CARBON DIOXIDE LEVEL 25 MEQ/L (21-32); CHLORIDE LEVEL 105 MEQ/L (98-107); CREATININE FOR GFR 0.88 MG/DL (0.55-1.02); GLUCOSE, FASTING 86 MG/DL (70-105); POTASSIUM SERUM 3.2 MEQ/L (3.5-5.1); SODIUM LEVEL 140 MEQ/L (136-145); TOTAL PROTEIN 7.8 GM/DL (6.4-8.2)
== END | disposition home or self-care (01) ==
LOC: M ED 16:47
DX: F43.20 Adjustment disorder, unspecified (principal); Z88.5 Allergy status to narcotic agent
CPT/HCPCS: 36415; 80048; 80076; 80306; 84443; 84703; 85027; 99285; G0480